=== PATIENT | female | born 1995 | race Caucasian/White ===

== ENCOUNTER → 2018-03-07 | Outpatient (CLI) | payer BC, OTHER ==
--- NOTE | 2018-03-08 01:24 | MR ---
EXAMINATION TYPE: MR cervical spine wo con DATE OF EXAM: 03/07/2018 COMPARISON: None HISTORY: Cervical disc degeneration, Pain TECHNIQUE: Multiplanar, multisequence images of the cervical spine were acquired. Cervical vertebra have fairly normal spacing and alignment. Posterior elements are intact. Cervical s zacarias cord shows normal signal pattern without evidence of edema. Mainstem appears normal. There is n o spinal stenosis. There is no compression fracture. There is no cervical paraspinal mass.. IMPRESSION: Normal MR scan of the cervical spine.
== END | disposition home or self-care (01) ==
LOC: RADMRIMAIN 21:03
PROVIDERS: ATTEND Internal Medicine Rheumatology
DX: M50.30 Other cervical disc degeneration, unspecified cervical region (principal)
CPT/HCPCS: 72141